=== PATIENT | male | born 1995 | race Two or more races ===

== ENCOUNTER 2025-03-06 11:51 | Emergency (ER) | payer MEDICAID, SELFPAY ==
[2025-03-06 11:53] VITALS: BP 116/70; PULSE 99; RESP 17; TEMP 37.2; O2SAT 96
--- NOTE | 2025-03-06 12:01 | EDNOTE_ITS ---
ED Medical Clearance RME/HPI General Stated complaint: MEDICAL CLEARANCE Time Seen by Provider: 03/06/25 11:54 Arrival date/time: 03/06/25 11:51 29-year-old male patient was brought in by law enforcement for medical clearance. Patient was brought in today for medical clearance. Apparently patient had an extensive surgery to to the left lower extremity, that was done in [place], more than 3 weeks ago. Patient forgot to apply his knee brace. Currently ambulatory with a walker. Patient also complained of pain, he did not take his pain medication this morning. Before he got incarcerated. Asking for pain medication and a knee brace. Denies any fever denies any other complaints. Related Information Home Medications ?Medication ?Instructions ?Recorded ?Confirmed No Known Home Medications 01/20/2112/30 Allergies Allergy/AdvReac Type Severity Reaction Status Date / Time No Known Allergies Allergy Verified 01/20/21 21:54 Review of Systems Review of Systems Narrative Review of Systems: Review of system reviewed and within normal limits except mentioned in HPI ED Exam Narrative Physical exam: VITAL SIGNS: Reviewed. GENERAL APPEARANCE: Alert and interactive, follows commands, no acute distress, HEAD AND FACE: Non-traumatic. ENT: PERRL, pink conjunctivitis, eyelid no trauma, Mucous membrane moist. NECK: Supple, nontender, no nuchal rigidity. GENITAL: Deferred. NEUROLOGICAL: Gross motor function intact sensory function intact, Appropriate for age. MUSCULOSKELETAL: low back nontender, full range of motion. EXTREMITIES: Left lower leg mild swelling especially on the proximal lower leg, with resident surgical scar, no redness no drainage with tenderness and limitation range of motion of the knee joints. Distal neurovascular status intact. SKIN: Color pink, dry, no rash, no lacerations, no abrasions, no contusions. LYMPHATICS: Deferred. Course Quality Measures none Orders Category Date Time Status Apply knee immobilizer ONCE Care 03/06/25 12:00 Active Ketorolac Inj [Toradol Inj] Med 03/06/25 12:00 Once 30 mg IM X1 ONE Vital Signs Vital signs: Vital Signs Temperature 98.9 F 03/06/25 11:53 Pulse Rate 99 03/06/25 11:53 Respiratory Rate 17 03/06/25 11:53 Blood Pressure 116/70 03/06/25 11:53 Pulse Oximetry (%) 96 03/06/25 11:53 Oxygen Delivery Method Room Air 03/06/25 11:53 Medical Clearance MDM Narrative MDM Narrative:: 29-year-old male patient was brought in by law enforcement for medical clearance. Patient was brought in today for medical clearance. Apparently patient had an extensive surgery to to the left lower extremity, that was done in [place], more than 3 weeks ago. Patient forgot to apply his knee brace. Currently ambulatory with a walker. Patient also complained of pain, he did not take his pain medication this morning. Before he got incarcerated. Asking for pain medication and a knee brace. Denies any fever denies any other complaints. Patient received Toradol IM, patient was also placed on a knee immobilizer. Distal neurovascular status intact post application of knee immobilizer. Graeme irene is medically cleared for incarceration Patient data External records reviewed:: None Clinical information provided by:: patient and law enforcement Social determinants that could affect healthcare access:: none Patient has the following chronic illnesses:: Recent lower leg surgery left How is presenting disease/condition affected by chronic disease/condition?: exacerbated by Evaluation data The following diagnostics were reviewed and interpreted by me:: other (specify) (None) Lab and/or radiology exams considered but not ordered:: None Interpretation Summary: None Medications / Prescriptions Medications or Prescriptions considered but not ordered:: None Medication administrations:: Medication Administration History Ketorolac Tromethamine (Ketorolac Inj 30 Mg/Ml Vial) 30 mg IM X1 ONE Stop: 03/06/25 12:01 Toradol IM Consultations Consultation(s) initiated? (list below): No Diagnosis Medical Clearance Differential Diagnosis: other (Medical clearance for incarceration, leg pain, status post recent leg surgery) Most likely diagnosis given after review of the tests above:: Medical clearance, pain, light, status post leg surgery Admission Indicated Admission indicated?: not indicated Explain why admission is indicated or not indicated:: Stable Admission Request Was there a request for admission?: No Disposition Plan Disposition Plan: Discharge Discharge Attestation Discharge Attestation: Medically cleared for incarceration. Patient condition: Stable Discharge Plan Plan Patient Disposition: Nursing Home/Court/Law Discharge Disposition comment: stable Prescriptions/Referrals Prescriptions/Med Rec: No Action No Known Home Medications Problem List Clinical Impression: Medical clearance for incarceration, Leg pain Patient/Caregiver Discharge Instructions Education Materials: Medicine for Pain Additional Instructions: Thank you for the opportunity for serving you today. You are stable for discharged . Medically cleared for incarceration Wear your knee immobilizer as needed Print Language: Malawian PA/GLASS INSTALLER Supervising Physician PA/GLASS INSTALLER Supervising Physician: MD Warner
[2025-03-06 12:08] VITALS: BMI 25.8
[2025-03-06] MEDS: KETOROLAC INJ 30 MG/ML VIAL IM (12:18)
== END 2025-03-06 12:41 ==
LOC: SERX 13:49
PROVIDERS: Emergency Provider Nurse Practitioner Family
DX: Z02.89 Encounter for other administrative examinations (principal); M79.605 Pain in left leg
CPT/HCPCS: 96372; 99282; J1885